=== PATIENT | female | born 1995 | race Caucasian/White ===

== ENCOUNTER → 2022-10-01 | Outpatient (CLI) | payer OTHER | LOC: M RAD 10:20 | PROVIDERS: ATTEND Nurse Practitioner Women's Health | DX: Z36.89 Encounter for other specified antenatal screening (principal); Z3A.19 19 weeks gestation of pregnancy ==

== ENCOUNTER → 2023-02-21 | Outpatient (CLI) | payer OTHER ==
[~2023-02-21] MED LIST: PRENTAB9 PO
== END ==
LOC: M RAD 15:56
PROVIDERS: ATTEND Student in an Organized Health Care Education/Training Program
DX: O26.03 Excessive weight gain in pregnancy, third trimester (principal); Z3A.40 40 weeks gestation of pregnancy

== ENCOUNTER 2023-02-23 10:10 | Inpatient (IN) | payer OTHER ==
[~2023-02-23] VITALS: Ht 157.5 cm; Wt 82.9 kg
[2023-02-23] VITALS (13 sets, daily range): BP systolic 125–154; BP diastolic 56–96; O2SAT 98
[2023-02-23] MEDS ORDERED: PRENTAB9 PO (10:30)
[2023-02-23] MEDS ORDERED: miSOPROStol 25MCG 1/4 TABLET PO SCH (11:05)
[2023-02-23] MEDS ORDERED: METHYLERGONOVINE MALEATE 0.2MG/ML 1ML VIAL IM PRN ×2 (11:05→15:25)
[2023-02-23] MEDS ORDERED: LIDOCAINE 1% MDV 20ML VIAL INFIL PRN (11:05)
[2023-02-23] MEDS ORDERED: LR 1,000 ML IV SCH ×2 (11:05→16:15)
[2023-02-23] MEDS ORDERED: TRANEXAMIC ACID INJection 1,000 MG in NS 100 ML IV PRN (11:05)
[2023-02-23] MEDS ORDERED: OXYTOCIN DRIP 30 UNITS in IV 1 EA IV PRN ×4 (11:05)
[2023-02-23 11:20] LABS: HEMATOCRIT 30.9 % (36.0-47.0); HEMOGLOBIN 9.3 g/dl (12.0-15.5); MEAN CORPUSCULAR HEMOGLOBIN 22.4 pg (27.0-33.0); MEAN CORPUSCULAR HGB CONC 30.1 g/dl (32.0-36.5); MEAN CORPUSCULAR VOLUME 74.5 fl (80.0-96.0); PLATELET COUNT, AUTOMATED 133 10^3/uL (150-450); RED BLOOD COUNT 4.15 10^6/uL (4.00-5.40); WHITE BLOOD COUNT 9.4 10^3/uL (4.0-10.0)
[2023-02-23] MEDS ORDERED: PENICILLIN G POTASSIUM 5 MU IV 5 MU in D5W MINI-BAG PLUS 100 ML IV STA (14:14)
[2023-02-23] MEDS ORDERED: ePHEDrine SULFATE 25 MG/5 ML(5MG/ML) SYRINGE IVP PRN (14:40)
[2023-02-23] MEDS ORDERED: EPIDURAL/PCA KEYS XX PRN (14:40)
[2023-02-23] MEDS ORDERED: ONDANSETRON 4MG 2ML VIAL IV PRN ×2 (14:40→15:25)
[2023-02-23] MEDS ORDERED: FENTANYL/ROPIVACAINE/NACL BAG 100 ML EPIDURAL SCH ×2 (14:40)
[2023-02-23] MEDS ORDERED: NALOXONE INJ 0.4MG/1ML VIAL IV PRN (14:40)
[2023-02-23] MEDS ORDERED: diphenhydrAMINE 50MG/ML VIAL IV PRN (14:40)
[2023-02-23] MEDS ORDERED: LR 500 ML IV PRN (14:40)
[2023-02-23] MEDS ORDERED: ROPIVACAINE HCL IVBAG 200 ML EPIDURAL SCH (14:40)
[2023-02-23] MEDS ORDERED: ACETAMINOPHEN 500 MG TAB PO PRN (15:25)
[2023-02-23] MEDS ORDERED: RHOGAM 300MCG (1500IU) INJ IM SCH (15:25)
[2023-02-23] MEDS ORDERED: METOCLOPRAMIDE INJ 10MG/2ML VIAL IV PRN (15:25)
[2023-02-23] MEDS ORDERED: DOCUSATE SODIUM 100MG CAPSULE PO PRN (15:25)
[2023-02-23] MEDS ORDERED: ACETAMINOPHEN TAB 650MG DOSE (2X325MG) PO PRN (15:25)
[2023-02-23] MEDS ORDERED: DIBUCAINE 1% OINTMENT 30GM TOP PRN (15:25)
[2023-02-23] MEDS ORDERED: OXYTOCIN DRIP 30 UNITS in IV 1 EA IV SCH (15:45)
[2023-02-23] MEDS: IBUPROFEN 800 MG TAB PO PRN (15:49)
[2023-02-23] MEDS ORDERED: PEN G POT 3,000,000 UNIT/50 ML 3,000,000 UNIT in IV 1 EA IV SCH (18:15)
[2023-02-23] MEDS: METHYLERGONOVINE MALEATE 0.2 MG TAB PO SCH (21:27)
[2023-02-24] MEDS: METHYLERGONOVINE MALEATE 0.2 MG TAB PO SCH ×2 (04:02→10:40)
[2023-02-24] MEDS: IBUPROFEN 800 MG TAB PO PRN ×2 (05:43→18:26)
[2023-02-24 06:00] VITALS: BP 116/59; O2SAT 98
[2023-02-24] MEDS: PRENATAL VITAMINS CHEWABLE TABLET PO SCH (08:25)
[2023-02-24] MEDS ORDERED: PRENATAL VITAMINS CHEWABLE TABLET PO SCH (09:00)
[2023-02-24 18:00] VITALS: BP 129/72; O2SAT 99
[2023-02-25] MEDS: IBUPROFEN 600MG TAB PO PRN ×2 (05:45→15:46)
[2023-02-25 06:00] VITALS: BP 115/75; O2SAT 99
[2023-02-25] MEDS: PRENATAL VITAMINS CHEWABLE TABLET PO SCH (08:49)
[2023-02-25] MEDS ORDERED: MEASLES,MUMPS,RUBELLA VACCINE INJ (MMR-II) SC.IMMUN ONE (09:00)
[2023-02-25] MEDS ORDERED: INFLUENZA QUADRIVALENT PF VACCINE 0.5ML SYRINGE IM.IMMUN ONE (09:00)
== END 2023-02-25 17:05 | disposition home or self-care (01) | DRG 807 ==
LOC: M LDI 10:10 → M OBS 17:25
PROVIDERS: ADMIT Obstetrics & Gynecology; ATTEND Obstetrics & Gynecology
PROC: 10E0XZZ Delivery of Products of Conception, External Approach (ICD-10-PCS; principal; 2023-02-23)
PROC: 3E0P7GC Introduction of Other Therapeutic Substance into Female Reproductive, Via Natural or Artificial Opening (ICD-10-PCS; 2023-02-23)
DX: O99.824 Streptococcus B carrier state complicating childbirth (principal); Z37.0 Single live birth; Z3A.40 40 weeks gestation of pregnancy